=== PATIENT | male | born 1970 | race Two or more races ===

== ENCOUNTER 2021-08-21 14:03 | Emergency (ER) | payer SELFPAY ==
[~2021-08-21] VITALS: Ht 172.7 cm; Wt 104.0 kg
[2021-08-21 14:05] VITALS: BP 169/86
[2021-08-21 14:20] LABS: BILIRUBIN,URINE NEGATIVE (NEG); CLARITY,URINE CLEAR; COLOR,URINE AMBER; NITRITE,URINE NEGATIVE (NEG); PH,URINE 6.5 (<5.0-8.0); PROTEIN,URINE 30 mg/dL (NEG-TRACE)
[2021-08-21 14:28] LABS: RBC,URINE OCC /HPF (0-2); WBC,URINE >40 /HPF (0-4)
[2021-08-21 14:29] LABS: BACTERIA,URINE 0 /HPF (0-FEW)
[2021-08-21] MEDS ORDERED: CEPH500C PO (15:06)
--- NOTE | 2021-08-21 15:06 | PHYS DOC ---
Past Medical History Past Surgical History: No Surgical History General Adult EDM: Chief Complaint: PAIN ON URINATION HPI: HPI: Patient is a 51-year-old male who presents to the emergency department for dysuria and left-sided flank pain that started on Monday. Patient reports that his pain with urination is 10 out of 10. No treatment prior to arrival. Patient denies any hematuria, urinary frequency/urgency, nausea, vomiting, fever, abdominal pain, urethral discharge. No history of UTIs. Review of Systems: Review of Systems: Constitutional: negative unless reported in HPI Eyes: negative unless reported in HPI HENT: negative unless reported in HPI Respiratory: negative unless reported in HPI Cardiovascular: negative unless reported in HPI GI: negative unless reported in HPI : negative unless reported in HPI Musculoskeletal: negative unless reported in HPI Integument: negative unless reported in HPI Neurologic: negative unless reported in HPI Endocrine: negative unless reported in HPI Lymphatic: negative unless reported in HPI Psychiatric: negative unless reported in HPI Heart Score: C/O Chest Pain: N/A Risk Factors: Risk Factors: DM, Current or recent (<one month) smoker, HTN, HLP, family history of CAD, obesity. Risk Scores: Score 0 - 3: 2.5% MACE over next 6 weeks - Discharge Home Score 4 - 6: 20.3% MACE over next 6 weeks - Admit for Clinical Observation Score 7 - 10: 72.7% MACE over next 6 weeks - Early Invasive Strategies Allergies: Allergies: Allergies Coded Allergies Type Severity Reaction Last Updated Verified No Known Drug Allergies 08/21/21 No Physical Exam: PE: Constitutional: Well developed, well nourished, no acute distress, non-toxic appearance. [] HENT: Normocephalic, atraumatic, bilateral external ears normal, oropharynx moist, no oral exudates, nose normal. [] Eyes: PERRL, EOMI, conjunctiva normal, no discharge. [] Neck: Normal range of motion, no stridor Cardiovascular:Heart rate regular rhythm, no murmur [] Lungs & Thorax: Bilateral breath sounds clear to auscultation [] Abdomen: Bowel sounds normal, soft, no tenderness, no masses, no pulsatile masses. [] Skin: Warm, dry, no erythema, no rash. [] Back: No tenderness, left CVA tenderness Extremities: No tenderness, no cyanosis, no clubbing, ROM intact, no edema. [] Neurologic: Alert and oriented X 3, normal motor function, normal sensory function, no focal deficits noted. [] Psychologic: Affect normal, judgement normal, mood normal. [] Current Patient Data: Labs: Laboratory Tests Test 08/21/21 14:10 Urine Collection Type Unknown Urine Color Marielle Urine Clarity Clear Urine pH 6.5 (<5.0-8.0) Urine Specific [place] 1.025 (1.000-1.030) Urine Protein 30 mg/dL (NEG-TRACE) Urine Glucose (UA) Negative mg/dL (NEG) Urine Ketones (Stick) 40 mg/dL (NEG) Urine Blood Trace (NEG) Urine Nitrite Negative (NEG) Urine Bilirubin Negative (NEG) Urine Urobilinogen Dipstick 1.0 mg/dL (0.2 mg/dL) Urine Leukocyte Esterase Large (NEG) Urine RBC Occ /HPF (0-2) Urine WBC >40 /HPF (0-4) Urine Bacteria 0 /HPF (0-FEW) Urine Mucus Mod /LPF Vital Signs: Vital Signs Date Time Temp Pulse Resp B/P (MAP) Pulse Ox O2 Delivery O2 Flow Rate FiO2 08/21/21 14:05 97.7 77 18 169/86 (113) 98 Room Air 97.7 EKG: EKG: [] Radiology/Procedures: Radiology/Procedures: [] Course & Med Decision Making: Course & Med Decision Making Pertinent Labs and Imaging studies reviewed. (See chart for details) [] Patient presents to the emergency department for dysuria that started on Monday. Patient does have left-sided flank pain but does not have any fevers, nausea or vomiting. Patient's urinalysis does show a urinary tract infection he will be discharged home with an antibiotic. Urine was tested for gonorrhea chlamydia and patient be notified of those results they become available. Avoid sexual intercourse until then. Patient advised to increase fluids and avoid bladder irritants. I discussed with patient all findings and diagnostic testing as well as the need to follow-up with PCP for further evaluation and treatment or return to the ER if any new or worsening symptoms. Strict return precautions were also discussed at length. Patient voiced understanding and agreement with the plan. Patient is hemodynamically stable at the time of disposition. Alayna Disclaimer: Alayna Disclaimer: This electronic medical record was generated, in whole or in part, using a voice recognition dictation system. Departure Departure Impression: Primary Impression: Cystitis Disposition: HOME / SELF CARE / HOMELESS Condition: GOOD Referrals: NO PCP (PCP) Patient Instructions: Urinary Tract Infection Additional Instructions: You were seen in the emergency department today for pain with urination. It appears that you have a urinary tract infection. This will be treated with an antibiotic. Please start and finish the antibiotic completely. Increase your fluids and avoid any bladder irritants like caffeine, sugary beverages or alcohol. Although you did not have any STI symptoms, we tested your urine for gonorrhea and chlamydia and will call you with those results when they become available in approximately 2 days. Please abstain from sexual intercourse until you receive these results. Follow-up with your primary care provider on Monday regarding your ER visit. Return to the emergency department if you develop worsening of your pain, abdominal pain, nausea, vomiting, blood in your urine, high fevers refractory to treatment, weakness or any new or worsening concerns. Scripts Cephalexin (KEFLEX) 500 Mg Capsule 1 CAP PO QID for 10 Days, #40 CAP 0 Refills Prov: LOIDA HORTA APRN 08/21/21 LOIDA HORTA APRN Aug 21, 2021 15:06
== END 2021-08-21 15:14 | disposition home or self-care (01) ==
LOC: ER 14:03
DX: N30.90 Cystitis, unspecified without hematuria (principal)
CPT/HCPCS: 81001; 87086; 87491; 87591; 99283